=== PATIENT | male | born 1990 | race Caucasian/White ===

== ENCOUNTER 2017-02-23 21:28 | Emergency (ER) | payer BC ==
--- NOTE | 2017-02-24 01:07 | ER ---
ADMIT: 02/23/2017 RM/LOC: ER [facility] MR#: [id number] [facility] [id number] [place], [place] [id number] [address] [place] [address] Emergency Room Report SEX: M AGE: 27 : 1990 DATE: 02/23/2017 The patient is a 27-year-old male, added Hemp Hearts to his health shake, within the hour developed diffuse urticarial eruption with pruritus. Denies any respiratory distress. Exam remarkable for nontoxic, afebrile male with diffuse urticarial eruption. No evidence of angioedema, received epinephrine 1:1000 at 0.3 mg IM, Benadryl 50 mg IM, and Depo-Medrol 80 mg IM in department with improvement. Advised no more Hemp Hearts. Prednisone 60 mg 12-day taper starting tomorrow. Benadryl as needed. Follow up Dr. Mayer as needed. Mingo Stanford MD/ afshan JOB #: [id number] CC: Mingo Stanford MD, Attending Physician Stevenson Mayer DO, Family Physician Stevenson Mayer DO
== END 2017-02-23 22:48 | disposition home or self-care (01) ==
LOC: ER 21:28
DX: T78.40XA Allergy, unspecified, initial encounter (principal)